=== PATIENT | male | born 1955 | race Caucasian/White ===

== ENCOUNTER 2022-01-27 06:59 | Day surgery (SDC) | payer MEDICARE ==
[~2022-01-27] VITALS: Ht 175.3 cm; Wt 109.8 kg
[~2022-01-27 06:59] MED LIST: ALLOPURINOL100 MG PO; ATORVASTATIN CA10 MG PO; COLCHICINE0.6 M2 PO; COQ10100 MG PO; LISINOPRIL20 M1 PO; MULTI VIT PO; NORVASC5 M1 PO
[2022-01-27 09:01] VITALS: BP 141/78
== END 2022-01-27 09:13 | disposition home or self-care (01) ==
LOC: ENDO 06:59 → ORM 08:00 → ENDO 08:00
PROVIDERS: ATTEND Surgery
PROC: 0DBL8ZX Excision of Transverse Colon, Via Natural or Artificial Opening Endoscopic, Diagnostic (ICD-10-PCS; principal; 2022-01-27)
PROC: 0DBN8ZX Excision of Sigmoid Colon, Via Natural or Artificial Opening Endoscopic, Diagnostic (ICD-10-PCS; 2022-01-27)
DX: D12.3 Benign neoplasm of transverse colon (principal); D12.5 Benign neoplasm of sigmoid colon; K57.30 Diverticulosis of large intestine without perforation or abscess without bleeding; K64.8 Other hemorrhoids; I10 Essential (primary) hypertension